=== PATIENT | female | born 1970 | race African-American/Black ===

== ENCOUNTER 2018-04-15 23:58 | Emergency (ER) | payer SELFPAY ==
[~2018-04-15] VITALS: Ht 170.2 cm; Wt 122.5 kg
[~2018-04-15 23:58] MED LIST: ACET-1574 PO; ACET650T89 PO; ASCO100T4 PO; ASCO500V4 PO; BIFI4CAP PO; CRAN300T PO; CYAN250T5 PO; FERR325T58 PO; HYDR25SU18 RC; INDO25CA5 PO; LISI1TAB7 PO; MESA1.2T PO; METF500T PO; OMEP20CA9 PO; OMEP20TA8 PO; POTA20TA12 PO; POTA20TA4 PO; POTA500T5 PO; PRED20TA PO; PRED5TAB PO; SULF500T PO; TRAM50TA PO; ibuprofen
[2018-04-16] MEDS ORDERED: FAMOTIDINE 20 MG/2 ML VIAL IVP ONE (01:00)
[2018-04-16] MEDS ORDERED: IV NORMAL SALINE 1000ML BAG 1,000 ML IV ONE (01:00)
[2018-04-16] MEDS ORDERED: ONDANSETRON PF 4 MG/2 ML VIAL. IV ONE (01:00)
[2018-04-16 01:19] LABS: BASO % 0 % (0-3); EOS # 0.3 x10^3/uL (0.0-0.7); EOS % 2 % (0-3); HEMATOCRIT 38.1 % (36.0-47.0); LYMPH # 1.2 x10^3/uL (1.0-4.8); LYMPH % 8 % (24-48); MEAN CORPUSCULAR HEMOGLOBIN 29 pg (25-35); MEAN CORPUSCULAR HGB CONC 34 g/dL (31-37); MEAN CORPUSCULAR VOLUME 84 fL (79-100); MONO # 1.6 x10^3/uL (0.0-1.1); MONO % 10 % (0-9); NEUT # 12.6 x10^3uL (1.8-7.7); NEUT % 80 % (31-73); PLATELET COUNT 276 x10^3/uL (140-400); RED BLOOD COUNT 4.51 x10^6/uL (3.50-5.40); RED CELL DISTRIBUTION WIDTH 14.3 % (11.5-14.5); WHITE BLOOD COUNT 15.8 x10^3/uL (4.0-11.0)
--- NOTE | 2018-04-16 01:34 | PHYS DOC ---
Past Medical History Past Medical History: Arthritis, Diabetes-Type II, Hypertension, Other Additional Past Medical Histor: ulcerative colitis, osteoarthritis,SHINGLES Past Surgical History: Hysterectomy, Tonsillectomy Additional Past Surgical Histo: colonoscopy 06/2014 Additional Information: Nonsmoker Alcohol Use: None Drug Use: None Adult General Chief Complaint Chief Complaint: NAUSEA/VOMITING/DIARRHA HPI HPI Patient is a 47 year old female who presents with a three-day history of sore throat, mucus production, productive cough, and weakness. She presented to the [facility] urgent care earlier today and was diagnosed with pneumonia and given a five-day supply of azithromycin. She took first jacobsen of that today, after that she developed a fever and she feels like her symptoms worsened. She states that she has a history of ulcerative colitis and that it has been exacerbated within the last 3 days. She denies nausea and vomiting. She reports that she's had left ear pain as well for that last couple days. Denies trauma. Denies known sick contacts. Review of Systems Review of Systems Constitutional: Admits to fever and chills Eyes: Denies change in visual acuity, redness, or eye pain [] HENT: Admits to congestion and sore throat Respiratory: Admits to cough and shortness of breath Cardiovascular: Denies palpitations, dizziness GI: Admits to abdominal pain and bloody diarrhea, denies nausea and vomiting : Denies dysuria or hematuria [] Integument: Denies rash or skin lesions [] Neurologic: Denies headache, focal weakness or sensory changes [] Complete systems were reviewed and found to be within normal limits, except as documented in this note. Current Medications Current Medications Current Medications Medications (Trade) Dose Ordered Sig/Jami Start Time Stop Time Status Last Admin Dose Admin Acetaminophen (Tylenol) 650 mg 1X ONCE 04/16/18 02:30 04/16/18 02:31 DC 04/16/18 02:16 650 MG Acetaminophen/ Hydrocodone Bitart (Lortab 5/325) 1 tab 1X ONCE 04/16/18 05:30 04/16/18 05:31 04/16/18 05:13 1 TAB Amoxicillin/ Clavulanate Potassium (Augmentin 875/ 125mg) 1 tab 1X ONCE 04/16/18 05:30 04/16/18 05:31 04/16/18 05:12 1 TAB Dexamethasone Sodium Phosphate (Decadron) 10 mg 1X ONCE 04/16/18 02:00 04/16/18 02:01 DC 04/16/18 02:01 10 MG Famotidine (Pepcid Vial) 20 mg 1X ONCE 04/16/18 01:00 04/16/18 01:01 DC 04/16/18 01:10 20 MG Fentanyl Citrate (Fentanyl 2ml Vial) 50 mcg 1X ONCE 04/16/18 03:30 04/16/18 03:31 DC 04/16/18 03:32 50 MCG Ketorolac Tromethamine (Toradol 15mg Vial) 15 mg 1X ONCE 04/16/18 02:30 04/16/18 02:31 DC 04/16/18 02:05 15 MG Ondansetron HCl (Zofran) 4 mg 1X ONCE 04/16/18 01:00 04/16/18 01:01 DC 04/16/18 01:10 4 MG Potassium Chloride (KCl Oral Soln) 60 meq 1X ONCE 04/16/18 03:15 04/16/18 03:16 DC Potassium Chloride (Klor-Con) 60 meq 1X ONCE 04/16/18 03:30 04/16/18 03:31 DC 04/16/18 03:32 60 MEQ Sodium Chloride 1,000 ml @ 1,000 mls/hr 1X ONCE 04/16/18 01:00 04/16/18 01:59 DC 04/16/18 01:10 1,000 MLS/HR Allergies Allergies Allergies Coded Allergies Type Severity Reaction Last Updated Verified Iodinated Contrast- Oral and IV Dye Allergy Severe Anaphylaxis 07/07/15 Yes Penicillins Allergy Intermediate Hives 04/16/18 Yes Physical Exam Physical Exam Constitutional: Well developed, well nourished, no acute distress, non-toxic appearance. [] HENT: Normocephalic, atraumatic, bilateral TM negative for erythema, oropharynx erythematous and swollen Eyes: conjunctiva normal, no discharge. [] Neck: Normal range of motion, submental lymphadenopathy and tenderness, supple, no meningeal signs Cardiovascular: Heart rate regular rhythm, no murmur [] Lungs & Thorax: Bilateral breath sounds clear to auscultation [] Abdomen: soft, mild diffuse tenderness, no rebound no guarding Skin: Warm, dry, no erythema, no rash. [] Extremities: No tenderness, no edema. [] Neurologic: Alert and oriented X 3, no focal deficits noted. [] Psychologic: Affect normal, judgement normal, mood normal. [] Current Patient Data Vital Signs Vital Signs Date Time Temp Pulse Resp B/P (MAP) Pulse Ox O2 Delivery O2 Flow Rate FiO2 04/16/18 05:13 18 92 04/16/18 04:00 85 136/69 (91) Nasal Cannula 2.0 04/16/18 03:35 97.5 97.5 Lab Values Laboratory Tests Test 04/16/18 01:00 04/16/18 02:00 04/16/18 02:05 White Blood Count 15.8 x10^3/uL (4.0-11.0) H Red Blood Count 4.51 x10^6/uL (3.50-5.40) Hemoglobin 13.0 g/dL (12.0-15.5) Hematocrit 38.1 % (36.0-47.0) Mean Corpuscular Volume 84 fL (79-100) Mean Corpuscular Hemoglobin 29 pg (25-35) Mean Corpuscular Hemoglobin Concent 34 g/dL (31-37) Red Cell Distribution Width 14.3 % (11.5-14.5) Platelet Count 276 x10^3/uL (140-400) Neutrophils (%) (Auto) 80 % (31-73) H Lymphocytes (%) (Auto) 8 % (24-48) L Monocytes (%) (Auto) 10 % (0-9) H Eosinophils (%) (Auto) 2 % (0-3) Basophils (%) (Auto) 0 % (0-3) Neutrophils # (Auto) 12.6 x10^3uL (1.8-7.7) H Lymphocytes # (Auto) 1.2 x10^3/uL (1.0-4.8) Monocytes # (Auto) 1.6 x10^3/uL (0.0-1.1) H Eosinophils # (Auto) 0.3 x10^3/uL (0.0-0.7) Basophils # (Auto) 0.0 x10^3/uL (0.0-0.2) Sodium Level 146 mmol/L (136-145) H Potassium Level 2.8 mmol/L (3.5-5.1) *L Chloride Level 107 mmol/L (98-107) Carbon Dioxide Level 30 mmol/L (21-32) Anion Gap 9 (6-14) Blood Urea Nitrogen 14 mg/dL (7-20) Creatinine 1.0 mg/dL (0.6-1.0) Estimated GFR (Cockcroft-Gault) 71.6 BUN/Creatinine Ratio 14 (6-20) Glucose Level 132 mg/dL (70-99) H Lactic Acid Level 0.7 mmol/L (0.4-2.0) Calcium Level 9.0 mg/dL (8.5-10.1) Total Bilirubin 0.8 mg/dL (0.2-1.0) Aspartate Amino Transferase (AST) 25 U/L (15-37) Alanine Aminotransferase (ALT) 29 U/L (14-59) Alkaline Phosphatase 106 U/L (46-116) Total Protein 7.4 g/dL (6.4-8.2) Albumin 3.4 g/dL (3.4-5.0) Albumin/Globulin Ratio 0.9 (1.0-1.7) L Lipase 187 U/L (73-393) Heterophil Agglutinins Negative (NEGATIVE) Urine Collection Type Unknown Urine Color Rosita Urine Clarity Clear Urine pH 6.0 Urine Specific [place] >=1.030 Urine Protein 30 mg/dL (NEG-TRACE) Urine Glucose (UA) Negative mg/dL (NEG) Urine Ketones (Stick) Trace mg/dL (NEG) Urine Blood Negative (NEG) Urine Nitrite Negative (NEG) Urine Bilirubin Negative (NEG) Urine Urobilinogen Dipstick 0.2 mg/dL (0.2 mg/dL) Urine Leukocyte Esterase Trace (NEG) Urine RBC 6-10 /HPF (0-2) Urine WBC 5-10 /HPF (0-4) Urine Squamous Epithelial Cells Mod /LPF Urine Bacteria Few /HPF (0-FEW) Urine Mucus Marked /LPF Influenza Type A Antigen Negative (NEGATIVE) Influenza Type B Antigen Negative (NEGATIVE) Laboratory Tests 04/16/18 01:00 Laboratory Tests 04/16/18 01:00 EKG EKG [] Radiology/Procedures Radiology/Procedures Two-view chest x-ray (preliminary interpretation by ED physician): No definitive infiltrate appreciated however there are some nonspecific lesions possible granulomas Course & Med Decision Making Course & Med Decision Making Pertinent Labs and Imaging studies reviewed. (See chart for details) 47-year-old female presents with three-day history of sore throat, mucus production, productive cough, and weakness. Rapid strep, mono, rapid strep was negative. CMP showed hypokalemia and hypernatremia. Potassium replacement was initiated. CBC showed elevated white count. History of ulcerative colitis, concern for exacerbation. Abdomen non-peritoneal. Medical history and physical exam suspicious for strep throat. Penicillin allergy discussed with patient. She states that she has used Augmentin before without any problems. Steroids prescribed for throat inflammation. Pain addressed. Patient stable for discharge with outpatient follow-up with PCP. Discussed findings and plan with patient and family, who acknowledge understanding and agreement. Dragon Disclaimer Dragon Disclaimer This electronic medical record was generated, in whole or in part, using a voice recognition dictation system. Departure Departure Impression: Primary Impression: Pharyngitis Disposition: HOME, SELF-CARE Condition: STABLE Referrals: OSWALDO OTERO MD (PCP) Patient Instructions: Viral and Bacterial Pharyngitis, Isay-et-Jvae Scripts Amoxicillin/Potassium Clav (AUGMENTIN 875-125 TABLET) 1 Each Tablet 1 TAB PO BID for 7 Days, #14 TAB Prov: CECE LANGE DO 04/16/18 Hydrocodone/Apap 5-325 (NORCO 5-325 TABLET) 1 Each Tablet 1 TAB PO PRN Q6HRS PRN for PAIN, #6 TAB 0 Refills Prov: CECE LANGE DO 04/16/18 Prednisone (PREDNISONE) 20 Mg Tablet 2 TAB PO DAILY, #8 TAB Take next dose tomorrow, Sunday04/17/2018 Prov: CECE LANGE DO 04/16/18 Problem Qualifiers Primary Impression: Pharyngitis Pharyngitis/tonsillitis etiology: unspecified etiology Qualified Codes: J02.9 - Acute pharyngitis, unspecified CECE LANGE DO Apr 16, 2018 01:34
[2018-04-16 01:40] LABS: ALBUMIN 3.4 g/dL (3.4-5.0); ALBUMIN/GLOBULIN RATIO 0.9 (1.0-1.7); GFR 71.6; TOTAL BILIRUBIN 0.8 mg/dL (0.2-1.0); TOTAL PROTEIN 7.4 g/dL (6.4-8.2)
[2018-04-16 01:45] LABS: POTASSIUM 2.8 mmol/L (3.5-5.1)
[2018-04-16] MEDS ORDERED: KETOROLAC 15 MG/ML VIAL. ONE (01:57)
[2018-04-16] MEDS ORDERED: DEXAMETHASONE SOD PHOS 20 MG/5 ML VIAL. IV ONE (02:00)
[2018-04-16 02:30] LABS: BILIRUBIN,URINE NEGATIVE (NEG); CLARITY,URINE CLEAR; COLOR,URINE AMBER; NITRITE,URINE NEGATIVE (NEG); PROTEIN,URINE 30 mg/dL (NEG-TRACE); UROBILINOGEN,URINE 0.2 mg/dL (0.2 mg/dL)
[2018-04-16] MEDS ORDERED: KETOROLAC 15 MG/ML VIAL. IV ONE (02:30)
[2018-04-16] MEDS ORDERED: ACETAMINOPHEN 325 MG TABLET. PO ONE (02:30)
[2018-04-16 02:55] LABS: BACTERIA,URINE FEW /HPF (0-FEW); SQUAMOUS EPITHELIAL CELL,UR MOD /LPF
[2018-04-16 02:57] LABS: INFLUENZA A PATIENT NEGATIVE (NEGATIVE); INFLUENZA B PATIENT NEGATIVE (NEGATIVE)
[2018-04-16] MEDS: POTASSIUM CHLORIDE 20 MEQ/15 ML ORAL LIQUID. PO ONE ×2 (03:13→03:15)
[2018-04-16 03:28] LABS: MONONUCLEOSIS PATIENT NEGATIVE (NEGATIVE)
[2018-04-16] MEDS ORDERED: POTASSIUM CHLORIDE 10 MEQ TABLET.ER. PO ONE (03:30)
[2018-04-16] MEDS ORDERED: POTASSIUM CHLORIDE 20 MEQ TABLET.ER. PO ONE (03:30)
[2018-04-16] MEDS ORDERED: fentaNYL PF VIAL 100 MCG/2 ML VIAL IV ONE (03:30)
[2018-04-16 05:00] VITALS: BP 133/74
[2018-04-16] MEDS ORDERED: PRED20TA PO (05:07)
[2018-04-16] MEDS ORDERED: HYDR-3164 PO (05:08)
[2018-04-16] MEDS ORDERED: AMOX1TAB61 PO (05:08)
[2018-04-16] MEDS ORDERED: HYDROcodone/APAP 5/325MG 1 TAB TABLET PO ONE (05:30)
[2018-04-16] MEDS ORDERED: AMOXICILLIN/K CLAV 875/125MG TABLET. PO ONE (05:30)
--- NOTE | 2018-04-16 08:20 | RAD ---
Chest, PA and Lateral: Technique: PA and lateral views of the chest were obtained. History: Cough, fever. Comparison: 08/17/2015. Findings: Low lung volumes accentuates heart size and pulmonary vascularity. Minimal bibasilar lung airspace opacities.. . . Impression: Minimal bibasilar lung airspace opacities likely atelectasis or infiltrates.. Electronically signed by: Angel Younger MD (04/16/2018 8:16 AM) [id number]
== END 2018-04-16 05:20 | disposition home or self-care (01) ==
LOC: ER 23:58
DX: J02.9 Acute pharyngitis, unspecified (principal); R19.7 Diarrhea, unspecified; R10.84 Generalized abdominal pain; H92.02 Otalgia, left ear; R53.1 Weakness; R05 Cough; R59.0 Localized enlarged lymph nodes; M19.90 Unspecified osteoarthritis, unspecified site; E11.9 Type 2 diabetes mellitus without complications; I10 Essential (primary) hypertension; Z90.710 Acquired absence of both cervix and uterus; Z90.89 Acquired absence of other organs; Z88.0 Allergy status to penicillin; Z91.041 Radiographic dye allergy status
CPT/HCPCS: 36415; 71046; 80053; 81001; 83605; 83690; 85025; 86308; 87070; 87086; 87804; 87880; 96361; 96374; 96375; 99284; J1100; J1885; J2405; J3010; J3490; J7030

== ENCOUNTER 2019-02-05 11:24 | Emergency (ER) | payer SELFPAY ==
[~2019-02-05] VITALS: Ht 170.2 cm; Wt 124.7 kg
[~2019-02-05 11:24] MED LIST changes: -ACET-1574 PO; +ACET-1871 PO; +AMOX1TAB61 PO; +HYDR-3164 PO; +INDO25CA21 PO; -INDO25CA5 PO; +LIALDA1.2 GM PO; +LISI1TAB20 PO; -LISI1TAB7 PO; -MESA1.2T PO; +OMEP20CA10 PO; -OMEP20CA9 PO
[2019-02-05 11:39] VITALS: BP 142/87
[2019-02-05] MEDS ORDERED: NAPROXEN 500 MG TABLET PO STA (11:48)
[2019-02-05] MEDS ORDERED: DICL50TA2 PO (11:56)
[2019-02-05] MEDS ORDERED: CYCL10TA2 PO (11:56)
[2019-02-05] MEDS ORDERED: HYDR-3164 PO (11:56)
--- NOTE | 2019-02-05 11:58 | PHYS DOC ---
Past Medical History Past Medical History: Arthritis, Diabetes-Type II, Hypertension, Other Additional Past Medical Histor: ulcerative colitis, osteoarthritis,SHINGLES Past Surgical History: Hysterectomy, Tonsillectomy Additional Past Surgical Histo: colonoscopy 06/2014 Alcohol Use: None Drug Use: None Adult General Chief Complaint Chief Complaint: LOWER BACK PAIN OR INJURY HPI HPI Patient is a 48 year old female with history of diabetes type 2, hypertension, sciatica, who presents to the ED today complaining of 10 out of 10 left lobe dasia k pain radiating into the back to the left lower extremity symptoms began 3 days ago. Patient denies any known. States symptoms are worse when she applies weight on the left lower extremity. She states she's been taking Tylenol and ibuprofen with no relief. Describes the pain as sharp and constant. Denies any loss of bowel/bladder function. Denies any numbness or tingling to bilateral lower extremities. Review of Systems Review of Systems Constitutional: Denies fever or chills [] GI: Denies abdominal pain, nausea, vomiting, bloody stools or diarrhea [] : Denies dysuria or hematuria [] Musculoskeletal: Reports left low back pain radiating to the left lower extremity Integument: Denies rash or skin lesions [] Neurologic: Denies headache, focal weakness or sensory changes [] All other systems were reviewed and found to be within normal limits, except as documented in this note. Current Medications Current Medications Current Medications Medications (Trade) Dose Ordered Sig/Jami Start Time Stop Time Status Last Admin Dose Admin Acetaminophen/ Hydrocodone Bitart (Lortab 5/325) 2 tab 1X ONCE 02/05/19 12:00 02/05/19 12:01 UNV Diazepam (Valium) 5 mg 1X ONCE 02/05/19 12:00 02/05/19 12:01 UNV Naproxen (Naprosyn) 500 mg 1X STAT 02/05/19 11:48 02/05/19 11:49 UNV Prednisone (Prednisone) 60 mg 1X ONCE 02/05/19 12:00 02/05/19 12:01 UNV Allergies Allergies Allergies Coded Allergies Type Severity Reaction Last Updated Verified Iodinated Contrast Media Allergy Severe Anaphylaxis 07/07/15 Yes Penicillins Allergy Intermediate Hives 04/16/18 Yes Physical Exam Physical Exam Constitutional: Well developed, well nourished, no acute distress, non-toxic appearance. [] Abdomen: Bowel sounds normal, soft, no tenderness, no masses, no pulsatile ma sses. [] Skin: Warm, dry, no erythema, no rash. [] Back: Moderate tenderness on palpation of the left SI joint tenderness, no CVA tenderness. [] Extremities: No tenderness, no cyanosis, no clubbing, ROM intact, no edema. [] Neurologic: Alert and oriented X 3, normal motor function, normal sensory function, no focal deficits noted. [] Psychologic: Affect normal, judgement normal, mood normal. [] Current Patient Data Vital Signs Vital Signs Date Time Temp Pulse Resp B/P (MAP) Pulse Ox O2 Delivery O2 Flow Rate FiO2 02/05/19 11:39 97.6 98 18 142/87 (105) 96 Room Air 97.6 EKG EKG [] Radiology/Procedures Radiology/Procedures [] Course & Med Decision Making Course & Med Decision Making Pertinent Labs and Imaging studies reviewed. (See chart for details) This is a 48-year-old female patient presenting to the ED today with exacerbation of sciatic pain patient has no cauda equina syndrome symptoms. No known injury. Was provided a pain clinic for follow-up. Dragon Disclaimer Dragon Disclaimer This electronic medical record was generated, in whole or in part, using a voice recognition dictation system. Departure Departure Impression: Primary Impression: Sciatica of left side Additional Impression: Low back pain Disposition: HOME, SELF-CARE Condition: STABLE Referrals: NO PCP (PCP) Follow-up with your doctor in 1-2 weeks CATHERINE GOMES MD follow up in 1-2 weeks Patient Instructions: Sciatica with [facility] Additional Instructions: You were evaluated in the emergency room for back pain with sciatica. Please follow-up with the pain clinic doctor provided as well as your primary care doctor in the next 7 days. Continue home remedies including applying heat or ice to the affected region. Scripts Diclofenac Potassium (DICLOFENAC POTASSIUM) 50 Mg Tablet 1 TAB PO BID, #20 TAB 0 Refills Prov: SHAMEKAAROSEMARY SIDING COREBOARD INSPECTOR 02/05/19 Cyclobenzaprine Hcl (CYCLOBENZAPRINE HCL) 10 Mg Tablet 1 TAB PO TID, #30 TAB Prov: MUTUNGAROSEMARY SIDING COREBOARD INSPECTOR 02/05/19 Problem Qualifiers Additional Impression: Low back pain Chronicity: acute Back pain laterality: left Sciatica presence: with sciatica Sciatica laterality: sciatica of left side Qualified Codes: M54.42 - Lumbago with sciatica, left side ROSEMARY CORLEY APRN Feb 05, 2019 11:58
[2019-02-05] MEDS ORDERED: diazePAM 5 MG TABLET PO ONE (12:00)
[2019-02-05] MEDS ORDERED: HYDROcodone/APAP 5/325MG 1 TAB TABLET PO ONE (12:00)
[2019-02-05] MEDS ORDERED: predniSONE 20 MG TABLET PO ONE (12:00)
== END 2019-02-05 12:10 | disposition home or self-care (01) ==
LOC: ER 11:24
DX: M54.42 Lumbago with sciatica, left side (principal); I10 Essential (primary) hypertension; E11.9 Type 2 diabetes mellitus without complications; Z90.710 Acquired absence of both cervix and uterus; Z88.0 Allergy status to penicillin; Z91.041 Radiographic dye allergy status
CPT/HCPCS: 99284; J7512

== ENCOUNTER 2020-04-03 10:48 | Emergency (ER) | payer SELFPAY ==
[2019-05-20 10:36] VITALS: BP 154/88
[~2020-04-03] VITALS: Ht 170.2 cm; Wt 107.0 kg
[~2020-04-03 10:48] MED LIST changes: +CYCL10TA2 PO; +DICL50TA2 PO; -OMEP20CA10 PO; +OMEP20CA16 PO; +OXYC1TAB22 PO; +WARF5TAB2 PO
--- NOTE | 2020-04-03 11:42 | PHYS DOC ---
Past Medical History Past Medical History: Arthritis, Diabetes-Type II, Hypertension, Other Additional Past Medical Histor: ulcerative colitis, osteoarthritis,SHINGLES Past Surgical History: Hysterectomy, Tonsillectomy Additional Past Surgical Histo: colonoscopy 06/2014 Smoking Status: Former Smoker Alcohol Use: None Drug Use: None General Adult EDM: Chief Complaint: LOWER BACK PAIN OR INJURY HPI: HPI: Patient is a 49 year old female who presents with bilateral lower back pain that radiates both the back of her legs for the last week. Patient went to PCP and they gave her gabapentin she states all it is doing is making her sleepy not helping. Patient's daughter is accompanying her and states that the patient is very slow with getting up and it is very hard for her to ambulate. Patient states when she goes to move her back starts to spasm. She denies loss of bowel bladder or numbness. Rates her pain a 10 out of 10 at this time. Patient denies any focal weakness. Patient states that she has had this before in the past but it was not nearly this bad. Patient states that she has never hurt her back where there is no injury and she has not fallen. Patient does have a history of hypertension, osteoarthritis, diabetes, ulcerative colitis, shingles. Review of Systems: Review of Systems: Constitutional: Denies fever or chills. [] Eyes: Denies change in visual acuity. [] HENT: Denies nasal congestion or sore throat. [] Respiratory: Denies cough or shortness of breath. [] Cardiovascular: Denies chest pain or edema. [] GI: Denies abdominal pain, nausea, vomiting, bloody stools or diarrhea. [] : Denies dysuria. [] Musculoskeletal: + Low back pain with radiation down back of legs or joint pain. +Unable to ambulate.[] Integument: Denies rash. [] Neurologic: Denies headache, focal weakness or sensory changes. +Tingling down back of legs[] Endocrine: Denies polyuria or polydipsia. [] Lymphatic: Denies swollen glands. [] Psychiatric: Denies depression or anxiety. [] Heart Score: Risk Factors: Risk Factors: DM, Current or recent (<one month) smoker, HTN, HLP, family history of CAD, obesity. Risk Scores: Score 0 - 3: 2.5% MACE over next 6 weeks - Discharge Home Score 4 - 6: 20.3% MACE over next 6 weeks - Admit for Clinical Observation Score 7 - 10: 72.7% MACE over next 6 weeks - Early Invasive Strategies Current Medications: Current Medications Medications (Trade) Dose Ordered Sig/Jami Start Time Stop Time Status Last Admin Dose Admin Ketorolac Tromethamine (Toradol Im) 60 mg 1X ONCE 04/03/20 11:45 04/03/20 11:46 Methylprednisolone Sodium Succinate (SOLU-Medrol 125MG VIAL) 125 mg 1X ONCE 04/03/20 11:45 04/03/20 11:46 Orphenadrine Citrate (Norflex) 60 mg 1X ONCE 04/03/20 11:45 04/03/20 11:46 Allergies: Allergies: Allergies Coded Allergies Type Severity Reaction Last Updated Verified Iodinated Contrast Media Allergy Severe Anaphylaxis 07/07/15 Yes Penicillins Allergy Intermediate Hives 04/16/18 Yes Physical Exam: PE: Constitutional: Well developed, well nourished, no acute distress, non-toxic appearance. [] HENT: Normocephalic, atraumatic, bilateral external ears normal, oropharynx moist, no oral exudates, nose normal. [] Eyes: PERRLA, EOMI, conjunctiva normal, no discharge. [] Neck: Normal range of motion, no tenderness, supple, no stridor. [] Cardiovascular:Heart rate regular rhythm, no murmur [] Lungs & Thorax: Bilateral breath sounds clear to auscultation [] Abdomen: Bowel sounds normal, soft, no tenderness, no masses, no pulsatile mas ses. [] Skin: Warm, dry, no erythema, no rash. [] Back: bilateral lower tenderness, no CVA tenderness. [] Extremities: No tenderness, no cyanosis, no clubbing, ROM intact, no edema. [] Neurologic: Alert and oriented X 3, normal motor function, normal sensory function, no focal deficits noted. [] Psychologic: Affect normal, judgement normal, mood normal. [] Current Patient Data: Vital Signs: Vital Signs Date Time Temp Pulse Resp B/P (MAP) Pulse Ox O2 Delivery O2 Flow Rate FiO2 04/03/20 10:55 98.3 88 15 155/87 (109) 98 Room Air 98.3 EKG: EKG: [] Radiology/Procedures: Radiology/Procedures: [] Impression: [facility] [address] [place] [address] IMAGING REPORT Signed PATIENT: YADIEL MACHUCA ACCOUNT: [id number] : 1970 LOCATION: ER AGE: 49 SEX: F EXAM STATUS: REG ER ORD. PHYSICIAN: RADHA ARCE APRN REASON: pain with sciatica bilaterally, numbness PROCEDURE: CT LUMBAR SPINE WO CONTRAST CT lumbar spine without contrast: Reason for examination: Pain with sciatica bilaterally. Numbness. Helical images were obtained through the lumbar spine and sacrum with no contrast administered. Reconstruction was performed in sagittal and coronal ramon agustin. Exposure: One or more of the following individualized dose reduction techniques were utilized for this examination: 1. Automated exposure control 2. Adjustment of the mA and/or kV according to patient size 3. Use of iterative reconstruction technique. The vertebral bodies of the lumbar spine are normally aligned anteriorly and posteriorly. No acute fracture or subluxation is seen. Posterior elements appear to be intact. No acute bony abnormality seen at the sacrum or sacroiliac joints. There is a sclerotic lesion in the right sacral ala however consistent with a probable bone island. This has shown an increase in size from 8 mm to [address] abdomen and pelvis exam in 2010. At the T12-L1, L1-2 and L2-3 levels there is no significant disc bulge or herniation and no spinal stenosis. At the L3-4 disc level there is mild broad-based posterior disc bulging with no significant spinal stenosis. At the L4-5 disc level, there is mild broad-based posterior disc bulge with no significant spinal stenosis. At the L5-S1 disc level, there is moderate broad-based disc bulging without significant lateral recess stenosis but there is mild neural foraminal stenosis bilaterally. IMPRESSION: Sclerotic lesion in the right sacral ala which has increased from 8 mm to 10 mm since 2010. This may represent a bone island. Mild broad-based disc bulging at the L3-4 and L4-5 disc levels without spinal stenosis. Moderate broad-based disc bulging at the L5-S1 level without central or lateral recess but with mild bilateral neural foraminal stenosis. Electronically signed by: David Conklin MD (04/03/2020 12:12 PM) [id number] DICTATED and SIGNED BY: DAVID CONKLIN MD DATE: 04/03/20 [id number] 0 Course & Med Decision Making: Course & Med Decision Making Pertinent Labs and Imaging studies reviewed. (See chart for details) See HPI. Bilateral lower back tenderness with palpation including midline spine. Patient can very slowly move her legs and does have full range of motion and there is no laxity or focal weakness. Again denies any loss of bowel or bladder. No saddle paresthesias. Patient is given dexamethasone, Toradol, orphenadrine. No extremity tenderness or swelling. Skin pink warm and dry. CT shows multiple bulging disks and arthritis. Patient is able to get up and walk. She states she is feeling better. Patient will be sent home on a Medrol dose pack and she can continue taking the gabapentin and add in ibuprofen and I will also send her home on cyclobenzaprine. [] Dragon Disclaimer: Dragon Disclaimer: This electronic medical record was generated, in whole or in part, using a voice recognition dictation system. Departure Departure Impression: Primary Impression: Low back pain Qualified Codes: M54.42 - Lumbago with sciatica, left side; M54.41 - Lumbago with sciatica, right side Disposition: 01 DC HOME SELF CARE/HOMELESS Condition: STABLE Referrals: PRABHA ANGLIN STAFF [employer] OFFICER (PCP) Patient Instructions: Sciatica with [facility] Additional Instructions: Follow-up with your primary care provider as soon as you can. Take medications as prescribed and with food. Do not drink any alcohol or drive with these medications remember they will make you sleepy. Scripts Cyclobenzaprine Hcl (CYCLOBENZAPRINE HCL) 5 Mg Tablet 1 TAB PO TID, #15 TAB Prov: RADHA ARCE CITY ENGINEER 04/03/20 Methylprednisolone (MEDROL) 4 Mg Tab.ds.pk 1 PKG PO UD, #1 PKG BEGIN TOMORROW MORNING 04/04 Prov: RADHA ARCE CITY ENGINEER 04/03/20 Ibuprofen (IBUPROFEN) 600 Mg Tablet 600 MG PO PRN Q6HRS PRN for INFLAMMATION, #20 TAB Prov: RADHA ARCE CITY ENGINEER 04/03/20 RADHA ARCE CITY ENGINEER Apr 03, 2020 11:42
[2020-04-03] MEDS ORDERED: ORPHENADRINE CITRATE 60 MG/2 ML VIAL. IM ONE ×2 (11:45→12:00)
[2020-04-03] MEDS ORDERED: methylPREDNISolone SOD SUCC PF 125 MG/2 ML VIAL. IM ONE (11:45)
[2020-04-03] MEDS ORDERED: KETOROLAC 60 MG/2 ML VIAL. IM ONE (11:45)
[2020-04-03] MEDS ORDERED: KETOROLAC 30 MG/ML VIAL. IVP ONE (12:00)
[2020-04-03] MEDS ORDERED: DEXAMETHASONE SOD PHOS 20 MG/5 ML VIAL. IV ONE (12:00)
--- NOTE | 2020-04-03 12:14 | RAD ---
CT lumbar spine without contrast: Reason for examination: Pain with sciatica bilaterally. Numbness. Helical images were obtained through the lumbar spine and sacrum with no contrast administered. Recon struction was performed in sagittal and coronal planes. Exposure: One or more of the following individualized dose reduction techniques were utilized for thi s examination: 1. Automated exposure control 2. Adjustment of the mA and/or kV according to patient size 3. Use of iterative reconstruction technique. The vertebral bodies of the lumbar spine are normally aligned anteriorly and posteriorly. No acute fr acture or subluxation is seen. Posterior elements appear to be intact. No acute bony abnormality seen at the sacrum or sacroiliac joints. There is a sclerotic lesion in the right sacral ala however cons istent with a probable bone island. This has shown an increase in size from 8 mm to 10 mm since the C T abdomen and pelvis exam in 2010. At the T12-L1, L1-2 and L2-3 levels there is no significant disc bulge or herniation and no spinal st enosis. At the L3-4 disc level there is mild broad-based posterior disc bulging with no significant spinal st enosis. At the L4-5 disc level, there is mild broad-based posterior disc bulge with no significant spinal bartolo nosis. At the L5-S1 disc level, there is moderate broad-based disc bulging without significant lateral reces s stenosis but there is mild neural foraminal stenosis bilaterally. IMPRESSION: Sclerotic lesion in the right sacral ala which has increased from 8 mm to 10 mm since 2010. This may represent a bone island. Mild broad-based disc bulging at the L3-4 and L4-5 disc levels without spinal stenosis. Moderate broad-based disc bulging at the L5-S1 level without central or lateral recess but with mild bilateral neural foraminal stenosis. Electronically signed by: Sharmila Lindsey MD (04/03/2020 12:12 PM) [id number]
[2020-04-03] MEDS ORDERED: IBUP-1007 PO (13:15)
[2020-04-03] MEDS ORDERED: METH4TAB2 PO (13:15)
[2020-04-03] MEDS ORDERED: CYCL5TAB PO (13:15)
== END 2020-04-03 13:20 | disposition home or self-care (01) ==
LOC: ER 10:48
DX: M54.42 Lumbago with sciatica, left side (principal); M54.41 Lumbago with sciatica, right side; M19.90 Unspecified osteoarthritis, unspecified site; E11.9 Type 2 diabetes mellitus without complications; I10 Essential (primary) hypertension; F17.200 Nicotine dependence, unspecified, uncomplicated; Z90.89 Acquired absence of other organs; Z90.710 Acquired absence of both cervix and uterus; Z98.890 Other specified postprocedural states; Z88.0 Allergy status to penicillin; Z91.041 Radiographic dye allergy status
CPT/HCPCS: 72131; 96372; 96374; 96375; 99284; J1100; J1885; J2360